=== PATIENT | female | born 1990 | race Two or more races ===

== ENCOUNTER → 2024-07-25 | Outpatient (CLI) | payer MEDICAID ==
[2024-07-25 13:05] LABS: Eosinophils # (auto) 0.1 10 ^3/uL (0-0.8); Lymphocytes # (auto) 3.4 10 ^3/uL (0.4-5.4); Mean Corpuscular Hgb Conc. 32.2 g/dL (32.0-36.0); Monocytes # (auto) 0.7 10 ^3/uL (0-1.3)
[2024-07-25 13:06] LABS: Basophils # (auto) 0.1 10 ^3/uL (0-0.2); Basophils % (auto) 0.5 % (0.0-2.0); Hematocrit 35.3 % (36.0-46.0); Hemoglobin 11.4 g/dL (12.2-16.2); Lymphocytes % (auto) 24.2 % (10.0-50.0); Monocytes % (auto) 5.1 % (0.0-12.0); Neutrophils # (auto) 9.7 10 ^3/uL (1.6-8.6); Neutrophils % (auto) 69.2 % (37.0-80.0); Nucleated Red Blood Cells % 0.1 %; Platelet Count (auto) 327 10^3/uL (140-450); Red Blood Cells 5.98 10^6/uL (4.0-5.20); Red Cell Distribution Width 19.1 % (11.8-14.3)
[2024-07-25 13:44] LABS: Alanine Aminotransferase 27 U/L (7-40); Albumin 4.4 g/dL (3.2-4.8); Anion Gap 9 (5-15); Aspartate Aminotransferase 20 U/L (13-40); BUN/Creatinine Ratio 10.6 (10.0-20.0); Blood Urea Nitrogen 5 mg/dL (9-23); Calcium 9.9 mg/dL (8.7-10.4); Carbon Dioxide 23 mmol/L (20-31); Chloride 105 mmol/L (98-107); Glucose 79 mg/dL (74-106); LDL Cholesterol 76 mg/dL (< 100); Potassium 3.7 mmol/L (3.5-5.1); Sodium 137 mmol/L (136-145); Triglycerides 143 mg/dL (< 150)
[2024-07-25 13:45] LABS: Bilirubin, Total 0.7 mg/dL (0.2-1.0); Cholesterol 142 mg/dL (< 200); HDL Cholesterol 53 mg/dL (40-59); Total Protein 7.5 g/dL (5.7-8.2)
[2024-07-25 13:46] LABS: Alkaline Phosphatase 83 U/L (46-116); Thyroid Stimulating Hormone 0.93 uIU/mL (0.55-4.78)
[2024-07-25 13:54] LABS: Beta HCG, Quantitative 88286.2 mIU/mL (1.5-4.2)
[2024-07-26 07:07] LABS: RPR Non Reactive (Non Reactive)
[2024-07-26 08:06] LABS: Varicella Zoster IgG Antibody Reactive (Non Reactive)
== END | disposition home or self-care (01) ==
LOC: LAB 12:25
PROVIDERS: ATTEND Obstetrics & Gynecology
DX: Z34.00 Encounter for supervision of normal first pregnancy, unspecified trimester (principal); N39.0 Urinary tract infection, site not specified; Z36.0 Encounter for antenatal screening for chromosomal anomalies
CPT/HCPCS: 36415; 80053; 80061; 83036; 84439; 84443; 84702; 85025; 86592; 86703; 86762; 86787; 86850; 86900; 86901; 87340; 87902

== ENCOUNTER → 2024-08-09 | Outpatient (CLI) | payer MEDICAID ==
[2024-08-09 16:52] LABS: Urine Blood Negative /uL (Negative); Urine Clarity Turbid (Clear); Urine Color Yellow (Yellow); Urine Protein, UAD Negative (Negative); Urine Specific Gravity 1.026 (1.001-1.035); Urine Urobilinogen Normal (Negative)
[2024-08-11 12:06] LABS: Chlamydia Trachomatis, NAA Negative (Negative); Neisseria gonorrhoeae, NAA Negative (Negative)
== END | disposition home or self-care (01) ==
LOC: LAB 16:07
PROVIDERS: ATTEND Obstetrics & Gynecology
DX: Z34.00 Encounter for supervision of normal first pregnancy, unspecified trimester (principal); Z31.430 Encounter of female for testing for genetic disease carrier status for procreative management; Z36.0 Encounter for antenatal screening for chromosomal anomalies; N39.0 Urinary tract infection, site not specified
CPT/HCPCS: 81003; 87086

== ENCOUNTER 2025-01-17 10:11 | Observation (INO) | payer MEDICAID ==
--- NOTE | 2025-01-17 12:11 | DVH ---
Procedure: US BIOPHYSICAL PROFILE 01/17/2025 10:43 AM Indication: GDMA1 Comparison: None Technique: Sonogram of gravid uterus utilizing grayscale and color techniques. FINDINGS: Single living intrauterine gestation. Presentation: Cephalic Placenta: Fundal and right lateral heart rate: 144 bpm SHAY: 15.5 cm, DVP: 3 cm Maternal cervix: Not visualized Biophysical Profile: breathing score: 2 movement score: 2 tone: 2 Quantitative SHAY score: 2 Total score: 8/8 IMPRESSION: 1. Single living as above. 2. Biophysical profile score: 8/8.
--- NOTE | 2025-01-18 06:35 | DVHDS2 ---
Physician Discharge Progress N Final Diagnosis: gdm 38wks Operations or Procedures: Operations or Procedures nst,sono Condition on Discharge: Good Disposition: Home Discharge Instructions: Diet: Regular, Consistent carbohydrate Activity: Light activity Medications: na Follow Up Care: Specialist: 3d Discharge Statement: "Patient was advised to return to the ER or call 911 if any headaches, dizziness, shortness of breath, chest pain, abdominal pain, bleeding, fevers, or worsening of medical condition. Patient was counseled about treatment plan, medications, possible side effects, patientverbalized understanding. All questions were answered to the best of my ability. This discharge took greater then 30 minutes in planning, reviewing documentation, counseling the patient, and discussing with other team members." Visit Coding OBGYN Date of Service: Jan 17, 2025 Billing Provider: EULOGIO STEVENS DO CURRICULUM DIRECTOR Common Visit Codes: 89538-MDBTHWC INP/OBS CARE (HIGH) CURRICULUM DIRECTOR Procedure Codes: 65802-44- NON-STRESS TEST EULOGIO STEVENS DO Jan 18, 2025 06:35
== END 2025-01-17 11:53 | disposition home or self-care (01) ==
LOC: UNDOADMOB 10:11 → LDRP 10:11 → UNDODISOB 11:53
PROVIDERS: ADMIT Obstetrics & Gynecology; ATTEND Obstetrics & Gynecology
DX: O24.419 Gestational diabetes mellitus in pregnancy, unspecified control (principal); Z3A.38 38 weeks gestation of pregnancy
CPT/HCPCS: 59025; 76819; 81002; 94760; G0378

== ENCOUNTER 2025-01-19 03:21 | Inpatient (IN) | payer MEDICAID ==
[~2025-01-19] VITALS: Ht 162.6 cm; Wt 116.1 kg
[2025-01-19] MEDS ORDERED: LIDOCAINE 2%HCL (LOCAL ANESTH.) INJ 20ML MDV IJ PRN (03:45)
[2025-01-19 04:18] LABS: Basophils # (auto) 0 10 ^3/uL (0-0.2); Hemoglobin 10.9 g/dL (12.2-16.2); Mean Corpuscular Hemoglobin 19.4 pg (28.0-32.0); Mean Corpuscular Volume 59.9 fL (80.0-100.0); Monocytes # (auto) 0.4 10 ^3/uL (0-1.3); Nucleated Red Blood Cells % 0.2 %
[2025-01-19 04:19] LABS: Basophils % (auto) 0.4 % (0.0-2.0); Eosinophils # (auto) 0.1 10 ^3/uL (0-0.8); Eosinophils % (auto) 0.5 % (0.0-7.0); Hematocrit 33.6 % (36.0-46.0); Lymphocytes # (auto) 2.6 10 ^3/uL (0.4-5.4); Lymphocytes % (auto) 22.7 % (10.0-50.0); Mean Corpuscular Hgb Conc. 32.4 g/dL (32.0-36.0); Monocytes % (auto) 3.6 % (0.0-12.0); Neutrophils # (auto) 8.3 10 ^3/uL (1.6-8.6); Neutrophils % (auto) 72.8 % (37.0-80.0); Platelet Count (auto) 264 10^3/uL (140-450); Red Blood Cells 5.61 10^6/uL (4.0-5.20); White Blood Cell 11.4 10^3/uL (4.4-10.8)
[2025-01-19 04:35] LABS: Alanine Aminotransferase 20 U/L (7-40); Anion Gap 10 (5-15); Aspartate Aminotransferase 23 U/L (13-40); BUN/Creatinine Ratio 16.1 (10.0-20.0); Bilirubin, Total 0.5 mg/dL (0.2-1.0); Blood Urea Nitrogen 9 mg/dL (9-23); Calcium 9.2 mg/dL (8.7-10.4); Carbon Dioxide 20 mmol/L (20-31); Glucose 97 mg/dL (74-106); Sodium 137 mmol/L (136-145); Total Protein 6.7 g/dL (5.7-8.2)
[2025-01-19 04:36] LABS: Alkaline Phosphatase 147 U/L (46-116); Chloride 107 mmol/L (98-107); INR 0.9 (0.9-1.15); Partial Thromboplastin Time 26.5 SEC (24.5-34.5); Prothrombin Time 9.6 sec (9.3-11.8)
[2025-01-19 04:43] LABS: Hypochromia Slight; Platelet Estimate Adequate
[2025-01-19] MEDS: LACTATED RINGER'S 1,000 ML IV SCH (04:43)
[2025-01-19] MEDS: PENICILLIN G POT 5MIL/D5 50ML 50 ML IV ONE (04:43)
[2025-01-19 04:59] LABS: Amphetamine Screen, Urine Neg (NEGATIVE); Barbiturate Scree,Urine Neg (NEGATIVE); Benzodiazephine Screen, Urine Neg (NEGATIVE); Cannabinoid Screen, Urine Neg (NEGATIVE); Cocaine Screen, Urine Neg (NEGATIVE); Opiate Scree,Urine Neg (NEGATIVE); Phencyclidine Screen, Urine Neg (NEGATIVE)
[2025-01-19] MEDS ORDERED: ACCU-CHEK COMFORT CURVE STRIP VI SCH (06:00)
[2025-01-19] MEDS ORDERED: ePHEDrine SULFATE 50 MG/ML AMP IV ONE (07:30)
[2025-01-19] MEDS: NALOXONE HCL 0.4 MG/ML VIAL IV ONE (07:30)
--- NOTE | 2025-01-19 08:27 | DVHHP2 ---
OB CC & HPI Date Date of Admission: Jan 19, 2025 Patient Identification: : 2 Para: 1 EDC: Jan 29, 2025 EGA: 38WKS Chief Complaints: Reason for admission: active labor, rupture of membranes Admission Nurse Assessment Rev: No History of Present Complaints PT PRESENTED IN LABOR W/SROM ,NO VAG BLEEDING .PT HAS GDMA2 AND EFW IS 8-1 OPTION OF PCS TO AVOID SHOULDER DYSTOCIA D/W PT BUT PT WANTS VAG DEL Past Medical History Cardiac: No pertinent Hx Pulmonary: No pertinent Hx Central Nervous System: No pertinent Hx GI: No pertinent Hx Hemotology/Oncology: No pertinent Hx Hepatobiliary: No pertinent Hx Psychiatric: No pertinent Hx Musculoskeletal: No pertinent Hx Rheumotologic: No pertinent Hx Infectious Disease: No peritnent Hx ENT: No pertinent Hx Renal/: No pertinent Hx Endocrine: No pertinent Hx Dermatology: No pertinent Hx Past Surgical History: No pertinent Hx OB History OB History Care: Good Care Obstetrical Complications: Gestational Diabetes Medical Complications: None Allergies: Coded Allergies: NO KNOWN ALLERGIES (Unverified , 01/19/25) Home Meds No Active Prescriptions or Reported Meds Current Medications Current Medications Medications (Trade) Dose Ordered Sig/Inder Route PRN Reason Start Time Stop Time Status Last Admin Lactated Ringer's 1,000 ml @ 125 mls/hr Q8H IV 01/19/25 03:45 01/19/25 04:43 Penicillin G Potassium [id number] units/Dextrose 50 ml @ 100 mls/hr Q4H IV 01/19/25 07:45 Diagnostic Test (Pha) (Accu-Chek Comfort Curve T) 1 strip Q4HR 01/19/25 06:00 Shaheen Ferreira (Tucks) 1 pad PRN PRN TOP PERINEAL AREA DISCOMFORT 01/19/25 03:45 Sodium Lauryl Sulfate (Phisoderm) 240 ml PRN PRN TOP PERINEAL AREA DISCOMFORT 01/19/25 03:45 Benzocaine (Dermoplast) 1 applic PRN PRN TOP PERINEAL AREA DISCOMFORT 01/19/25 03:45 Lidocaine HCl (Xylocaine) 20 ml ONCE PRN IJ PERINEAL AREA DISCOMFORT 01/19/25 03:45 Family & Social History Family/Social History Blood Type: Unknown Rubella: unknown RPR/VDRL: Negative GBS Status: Unknown HBsAG: Negative Review of Systems Constitutional: No symptom reported Ears, Nose, & Throat: No symptom reported Eyes: No symptom reported Pulmonary/Respiratory: No symptom reported Cardiovascular: No symptom reported Gastrointestinal: No symptom reported Genitourinary: No symptom reported Musculoskeletal: No symptom reported Skin: No symptom reported Psychiatric: No symptom reported Endocrine: No symptom reported Hemotologic/Lymphatic: No symptom reported OB Admission Exam Physical Exam HEENT: TMs Normal, Fontanelles Normal, Nasal Mucosa Normal, Eyes non-injected, Oropharynx Normal, PERRLA, Moist Membranes, EOMI Heart: Rhythm Normal Lungs: Clear Abdomen: Non tender Extremities: Normal Reflexes: Normal Cervical Dilatation: 7cm Effacement: 75% Station: -1 Membranes: Ruptured Amniotic Fluid: Clear Heart Rate: 130's Accelerations: Accelerations Present Decelerations: No Decelerations Short Term Variability: Present [employer] Variability: Average (6-25) Contractions on Admission: < 5 Minutes Apart Intensity: Moderate OB Plan Plan Admitting Diagnosis: IUP AT 38WKS W/SROM GDMA2 MORBID OBESITY Induction Methd: Pitocin protocol Other Plan: INFORMED CONSENT OBTAINED,POSSIB OF SHOLUDER DYSTOCIA D/W PT ALL OPTIONS REVIEWED ,OPTION OF PCS D/W PT BUT PT WANTS TRIAL OF VAG DEL Visit Coding OBGYN Date of Service: Jan 19, 2025 Billing Provider: EULOGIO STEVENS DO HARDNESS INSPECTOR Common Visit Codes: [id number] INP/OBS CARE (HIGH) HARDNESS INSPECTOR Procedure Codes: 58855-76- NON-STRESS TEST EULOGIO STEVENS DO Jan 19, 2025 08:27
[2025-01-19] MEDS: ROPIVACAINE HCL 200 ML ONE (08:44)
[2025-01-19] MEDS: PENICILLIN G POTASSIUM 2,500,000 UNITS in D5W 5% 50 ML IV SCH (08:50)
--- NOTE | 2025-01-19 08:59 | EPIDURAL ---
Anesthesia Procedural Note - Epidural Informed consent obtained?: Yes Medication Administered: Fentanyl 100 mcg Sterile prept drape: Yes Spinal level of insertion: L4-L5 Infusion started: Yes Start time: 08:10 End time: 08:45 Procedure description Procedure description: Called for labor analgesia. History taken, chart reviewed, patient examined at 0810 (BP 120/66 HR 83 spO2 99). Patient is , 38+ weeks with SROM, requesting epidural. Informed consent for CSE obtained. Sitting position, sterile prep and drape. Time out done at 0812. L4-5 space infiltrated with 1% lido. Epidural needle placed with ENMANUEL at 6.5cm. 25G spinal needle +clear CSF. 15mcg fentanyl given IT at 0819 (BP 128/74 HR 86 spO2 98). Epidural catheter secured at 12cm. Aspiration and test dose (5cc 1.5% lido with epi) negative at 0821 (BP 120/64 HR 66 spO2 99). 85 mcg fentanyl given via epidural at 0822 (128/71 HR 71 spO2 99). Patient reports good pain relief. 0.2% ropivacaine infusion started at 0834. Will follow as needed. FELICITY GRAF MD Jan 19, 2025 08:59
[2025-01-19] MEDS: METHYLERGONOVINE MALEATE 0.2 MG/ML AMP IM ONE ×2 (09:12→09:43)
--- NOTE | 2025-01-19 09:36 | LDN2 ---
Labor and Delivery Note Date 01/19/25 Age 35 2 Para 2 EDC 4-16 EGA 38wks Diagnosis iup at 38wks with srom,ama,morbid obesity,gdma2 Vaginal Delivery: VTX Vacuum Assisted: No Placenta: Spontaneous Sex: Male Apgars 8-9 Nuchal Cord Transected: No Amniotic Fluid: Clear Anesthesia epidural Episiotomy: No Extension: Yes (2nd deg perineal lac) Repaired with 2-0 chromic EBL 300ml Labs Laboratory Tests 07/25/24 12:42: Hepatitis B Surface Antigen Negative, HIV (1&2) Antibody Negative, Rubella Antibody Positive Blood Bank 01/19/25 03:55: Blood Type O POSITIVE Complications none Conditions stable Comments/Significant Med Audrey spec exam no cxal lac Visit Coding OBGYN Date of Service: Jan 19, 2025 Billing Provider: EULOGIO STEVENS DO [employer]BLE [employer] TERRAZZO WORKER Common Visit Codes: [id number] INP/OBS CARE (HIGH) [employer]BLE [employer]IP TERRAZZO WORKER Procedure Codes: [id number]-RGJ DELIVERY ONLY EULOGIO STEVENS DO Jan 19, 2025 09:36
[2025-01-19] MEDS: LACT. RINGERS/OXYTOCIN 20UNITS 500 ML IV ONE ×2 (09:41)
[2025-01-19] MEDS: fentaNYL CITRATE 100 MCG/2 ML VL IV ONE (09:43)
[2025-01-19] MEDS: WITCH HAZEL-GLYCERIN PAD TOP PRN (09:44)
[2025-01-19] MEDS: DERMOPLAST 60ML BOTTLE TOP PRN (09:44)
[2025-01-19] MEDS: PHISODERM TOP SOLN 240ML BTL TOP PRN (09:44)
[2025-01-19] MEDS ORDERED: ACETAMINOPHEN 325 MG TAB PO PRN (09:45)
[2025-01-19] MEDS: IBUPROFEN 800 MG TAB PO ONE (14:38)
[2025-01-19 14:43] VITALS: BP 131/87; PULSE 67; RESP 18; TEMP 98; O2SAT 97
[2025-01-19 19:00] VITALS: BP 125/76; PULSE 70; RESP 16; TEMP 98.3; O2SAT 95
[2025-01-19] MEDS: IBUPROFEN 600 MG TAB PO PRN (19:39)
[2025-01-19] MEDS: DOCUSATE SOD 100 MG CAP PO SCH (21:37)
[2025-01-19 23:00] VITALS: BP 114/63; PULSE 70; RESP 16; TEMP 98.4; O2SAT 98
[2025-01-20 03:00] VITALS: BP 107/66; PULSE 63; RESP 16; TEMP 98; O2SAT 97
--- NOTE | 2025-01-20 06:21 | DVHPN2 ---
Progress Note Date Seen: Jan 20, 2025 Subjective S: Lochia minimal Tolerating regular diet well. Ambulating and voiding well w/o feeling lightheaded or dizzy. Passing flatus but no BM yet. Breast feeding. Contraceptive plan: Desires and requests to be discharged home today vital signs Vital Sign Date Time Temp Pulse Resp B/P (MAP) Pulse Ox O2 Delivery O2 Flow Rate FiO2 01/20/25 03:00 98.0 63 16 107/66 (80) 97 98.0 01/19/25 19:00 Room Air Total Intake and Output 01/19/25 01/19/25 01/20/25 15:00 23:00 07:00 Output Total 900 ml 1600 ml 750 ml Balance -900 ml -1600 ml -750 ml medications Current Medications Medications Dose Ordered Sig/Inder Route Start Time Stop Time Status Last Admin Dose Admin Lactated Ringer's 1,000 ml @ 125 mls/hr Q8H IV 01/19/25 03:45 01/19/25 04:43 125 MLS/HR Diagnostic Test (Pha) 1 strip Q4HR 01/19/25 06:00 Cancel Witch Hanna 1 pad PRN PRN TOP 01/19/25 03:45 01/19/25 09:44 1 PAD Sodium Lauryl Sulfate 240 ml PRN PRN TOP 01/19/25 03:45 01/19/25 09:44 240 ML Benzocaine 1 applic PRN PRN TOP 01/19/25 03:45 01/19/25 09:44 1 APPLIC Ibuprofen 600 mg Q6HP PRN PO 01/19/25 09:45 01/20/25 03:51 600 MG Acetaminophen 650 mg Q4HP PRN PO 01/19/25 09:45 Docusate Sodium 200 mg HS PO 01/19/25 22:00 01/19/25 21:37 200 MG laboratory and microbiology Laboratory Tests 01/19/25 03:55 Test 01/19/25 03:55 Range/Units Serum Glucose 97 74-106 mg/dL Objective O: A&O x3 NAD. Afebrile, VSS Chest: heart and lung sounds normal. Breasts: Nipples intact w/o cracks or soreness Abdomen: normal BS, soft, non-tender, no rebound or guarding, fundus firm @ U- 1, lochia minimal Perineum:- no edema, or erythema, Incision / laceration site with sutures intact, edges in good approximation. Hemorrhoid noted Extremities: no edema or tenderness Lochia - minimal Assessment/Plan A/P 35 yo now ppd#1 s/p , doing well. Blood Type: O Rh: Positive Breast feeding Rubella Immune Pain control with oral medications Bowel regimen: Increase fluid intake and fiber in diet, Laxative PRN PP BCM Plan: Male Condoms Discharge plan: May discharge home later today if condition remains stable Plan discussed with: Patient Visit Coding OBGYN Date of Service: Jan 20, 2025 Billing Provider: MAGALI WREN CNM WAITER/WAITRESS [employer] Common Visit Codes: [id number] INP/OBS CARE(HIGH) MAGALI WREN CNM Jan 20, 2025 06:21
--- NOTE | 2025-01-20 06:23 | DVHDS2 ---
Discharge Summary Date of Admission Jan 19, 2025 at 03:35 Date of Discharge: Jan 20, 2025 Admitting Diagnosis IUP at 38w 4d GDMA2 SROM Labs/Diagnostic Data: Laboratory Results Test 01/19/25 14:32 01/19/25 04:00 01/19/25 03:55 POC Glucose 83 mg/dl (70-106) Urine Opiates Screen Neg (NEGATIVE) Urine Fentanyl Screen Neg (NEGATIVE) Urine Barbiturates Screen Neg (NEGATIVE) Urine Phencyclidine Screen Neg (NEGATIVE) Urine Amphetamines Screen Neg (NEGATIVE) Urine Benzodiazepines Screen Neg (NEGATIVE) Urine Cocaine Screen Neg (NEGATIVE) Urine Cannabinoids Screen Neg (NEGATIVE) White Blood Count 11.4 10^3/uL (4.4-10.8) Red Blood Count 5.61 10^6/uL (4.0-5.20) Hemoglobin 10.9 g/dL (12.2-16.2) Hematocrit 33.6 % (36.0-46.0) Mean Corpuscular Volume 59.9 fL (80.0-100.0) Mean Corpuscular Hemoglobin 19.4 pg (28.0-32.0) Mean Corpuscular Hemoglobin Concent 32.4 g/dL (32.0-36.0) Red Cell Distribution Width 20.0 % (11.8-14.3) Platelet Count 264 10^3/uL (140-450) Mean Platelet Volume 9.3 fL (6.9-10.8) Neutrophils (%) (Auto) 72.8 % (37.0-80.0) Lymphocytes (%) (Auto) 22.7 % (10.0-50.0) Monocytes (%) (Auto) 3.6 % (0.0-12.0) Eosinophils (%) (Auto) 0.5 % (0.0-7.0) Basophils (%) (Auto) 0.4 % (0.0-2.0) Neutrophils # (Auto) 8.3 10 ^3/uL (1.6-8.6) Lymphocytes # (Auto) 2.6 10 ^3/uL (0.4-5.4) Monocytes # (Auto) 0.4 10 ^3/uL (0-1.3) Eosinophils # (Auto) 0.1 10 ^3/uL (0-0.8) Basophils # (Auto) 0 10 ^3/uL (0-0.2) Nucleated Red Blood Cells 0.2 % Platelet Estimate Adequate Hypochromasia (manual) Slight Microcytosis Slight Prothrombin Time 9.6 sec (9.3-11.8) Prothrombin Time INR 0.90 (0.9-1.15) Activated Partial Thromboplast Time 26.5 SEC (24.5-34.5) Sodium Level 137 mmol/L (136-145) Potassium Level 4.0 mmol/L (3.5-5.1) Chloride Level 107 mmol/L (98-107) Carbon Dioxide Level 20 mmol/L (20-31) Anion Gap 10 (5-15) Blood Urea Nitrogen 9 mg/dL (9-23) Creatinine 0.56 mg/dL (0.550-1.02) Glomerular Filtration Rate Calc 122 mL/min (>90) BUN/Creatinine Ratio 16.1 (10.0-20.0) Serum Glucose 97 mg/dL (74-106) Calcium Level 9.2 mg/dL (8.7-10.4) Total Bilirubin 0.5 mg/dL (0.2-1.0) Aspartate Amino Transferase (AST) 23 U/L (13-40) Alanine Aminotransferase (ALT) 20 U/L (7-40) Alkaline Phosphatase 147 U/L (46-116) Total Protein 6.7 g/dL (5.7-8.2) Albumin 4.0 g/dL (3.2-4.8) Treponema pallidum Antibody Non-reactive (Negative) Hepatitis C Antibody Negative (Negative) Other Laboratory Tests 01/19/25 03:55 Brief Hx & Hospital Course: 35yo with GDMA2 was admitted on 01/19/25 at [facility] of 38w 4d for SROM. Labor started spontaneously and progressed normally resulting in of a viable baby boy. (See delivery note for details) course uneventful, meeting milestones w/o problem. Operations or Procedures Normal Spontaneous Vaginal Ddelivery Condition at Discharge: Good Final Diagnosis/Problems List Term Hemorrhoids Anemia Discharge Disposition: Home Discharge Instruct/Medications Diet: Regular Diet comment: Diet: Routine regular diet rich in fiber, protein, iron and vitamin C with adequate fluid intake. Activity: No Restrictions, As Tolerated Activity comment: Unrestricted. Advance as tolerated. No heavy lifting, pushing or straining. Pelvic rest x 6weeks Balance activities with rest periods Medications: Ibuprofen 600mg every 6 hours as needed for pain. Continue Vitamin and iron Discharge Statement: self care instructions given. emergency signs and symptoms including pre-eclampsia precautions and signs of PPD reviewed with patient. Follow up with OB Provider in 1 week "Patient was advised to return to the ER or call 911 if any headaches, dizziness, shortness of breath, chest pain, abdominal pain, bleeding, fevers, or worsening of medical condition. Patient was counseled about treatment plan, medications, possible side effects, patientverbalized understanding. All questions were answered to the best of my ability. This discharge took greater then 30 minutes in planning, reviewing documentation, counseling the patient, and discussing with other team members." ASSESSMENT ASSESSMENT Hospital Course 35yo with GDMA2 was admitted on 01/19/25 at EGA of 38w 4d for SROM. Labor started spontaneously and progressed normally resulting in of a viable baby boy. (See delivery note for details) course uneventful, meeting milestones w/o problem. Assessment Term Delivery Anemia Hemorrhoids AMA h/o GDMA2 Visit Coding OBGYN Date of Service: Jan 20, 2025 Billing Provider: MAGALI WREN CNM MUTUAL FUND ANALYST Common Visit Codes: [id number]-SSM/OBS DISCH DAY <30MIN MAGALI WREN CNM Jan 20, 2025 06:23
[2025-01-20 07:00] VITALS: BP 132/73; PULSE 76; RESP 18; TEMP 98.2; O2SAT 97
[2025-01-20 11:00] VITALS: BP 131/72; PULSE 72; RESP 19; TEMP 98.4; O2SAT 98
== END 2025-01-20 13:03 | disposition home or self-care (01) | DRG 560 ==
LOC: LDRP 03:21 → OBSVTOIN 03:35 → LDRP 03:36
PROVIDERS: ADMIT Obstetrics & Gynecology; ATTEND Obstetrics & Gynecology
PROC: 10E0XZZ Delivery of Products of Conception, External Approach (ICD-10-PCS; principal; 2025-01-19)
PROC: 3E0S3BZ Introduction of Anesthetic Agent into Epidural Space, Percutaneous Approach (ICD-10-PCS; 2025-01-19)
PROC: 00HU33Z Insertion of Infusion Device into Spinal Canal, Percutaneous Approach (ICD-10-PCS; 2025-01-19)
PROC: 0KQM0ZZ Repair Perineum Muscle, Open Approach (ICD-10-PCS; 2025-01-19)
DX: O24.429 Gestational diabetes mellitus in childbirth, unspecified control (principal); Z37.0 Single live birth; O87.2 Hemorrhoids in the puerperium; E66.01 Morbid (severe) obesity due to excess calories; O99.214 Obesity complicating childbirth; Z3A.38 38 weeks gestation of pregnancy; O70.1 Second degree perineal laceration during delivery; O99.02 Anemia complicating childbirth
CPT/HCPCS: 36415; 59409; 62282; 80053; 80307; 82948; 82962; 85025; 85610; 85730; 86780; 86803; 86850; 86900; 86901; 94760; 94762; 96360; 96361; 96365; 96366; G0378; J2540; J2590; J7060